=== PATIENT | male | born 1985 | race African-American/Black ===

== ENCOUNTER 2017-10-31 11:37 | Inpatient (IN) | payer SELFPAY ==
[~2017-10-31] VITALS: Ht 170.2 cm; Wt 162.9 kg
[2017-10-31] VITALS (13 sets, daily range): BP systolic 136–226; BP diastolic 65–121; PULSE 91–105; RESP 16–32; TEMP 98.4; O2SAT 96–99
[~2017-10-31 11:37] MED LIST: FURO1TAB93 PO; LISI-363 PO; METO50TA PO; OMEP20CA5 PO; POTA-267 PO; WARF5TAB PO; WARF7.5T4 PO; ZITH250T PO
[2017-10-31] MEDS ORDERED: IOHEXOL 350 MG/ML 10 ML VIAL (for RAD DIAG) IVCONTRAST ONE (11:38)
--- NOTE | 2017-10-31 12:34 | RADRPT ---
EXAM DATE/TIME: 10/31/2017 12:10 [facility] COMPARISON: CT PULMONARY ANGIOGRAM, August 31, 2014, 11:39. CHEST SINGLE AP, May 04, 2016, 20:19. CHEST PA & LAT, October 10, 2014, 4:55. INDICATIONS : Short of breath since last Sunday. MEDICAL HISTORY : Hypertension. A-fib SURGICAL HISTORY : Pacemaker. ENCOUNTER: Initial ACUITY: 4 - 6 days PAIN SCORE: 0/10 LOCATION: Bilateral chest FINDINGS: PA and lateral views of the chest demonstrate the lungs to be symmetrically aerated without evidence of mass, infiltrate or effusion. The heart is enlarged, similar in size and configuration to prior a dmission radiograph in September 2014. Cardiac pacer in place with 3 leads present. No evidence of pne umothorax. No blunting of the costophrenic angles. CONCLUSION: 1. Cardiomegaly, stable. 2. No infiltrates seen. Aditya Conteh MD on October 31, 2017 at 12:29 Board Certified Radiologist. This report was verified electronically.
[2017-10-31] MEDS ORDERED: LISI-515 PO (13:15)
[2017-10-31] MEDS ORDERED: OMEP40CA2 PO (13:15)
[2017-10-31] MEDS ORDERED: METO50TA PO (13:15)
[2017-10-31] MEDS ORDERED: WARF-23 PO (13:15)
[2017-10-31] MEDS ORDERED: KLOR10TA PO (13:15)
[2017-10-31] MEDS ORDERED: FURO40TA PO (13:15)
[2017-10-31] MEDS ORDERED: WARF-21 PO (13:15)
[2017-10-31 13:20] LABS: AUTOMATED NEUTROPHIL # 4.9 TH/MM3 (1.8-7.7); BASOPHIL % 0.3 % (0.0-2.0); EOSINOPHIL # 0.2 TH/MM3 (0-0.4); EOSINOPHIL % 1.9 % (0.0-4.0); HEMATOCRIT 41.4 % (39.0-51.0); HEMOGLOBIN 13.5 GM/DL (13.0-17.0); LYMPH % 33.8 % (9.0-44.0); LYMPHOCYTE # 2.9 TH/MM3 (1.0-4.8); MEAN CELL VOLUME 81.4 FL (80.0-100.0); MEAN CORPUSCULAR HEMOGLOBIN 26.6 PG (27.0-34.0); MEAN CORPUSCULAR HGB CONC 32.7 % (32.0-36.0); MEAN PLATELET VOLUME 10.8 FL (7.0-11.0); MONO % 7.9 % (0.0-8.0); MONOCYTE # 0.7 TH/MM3 (0-0.9); NEUT % 56.1 % (16.0-70.0); PLATELET COUNT 178 TH/MM3 (150-450); RED BLOOD COUNT 5.08 MIL/MM3 (4.50-5.90); RED CELL DISTRIBUTION WIDTH 16.4 % (11.6-17.2); WHITE BLOOD COUNT 8.7 TH/MM3 (4.0-11.0)
[2017-10-31 13:27] LABS: PROTHROMBIN TIME - PATIENT 20.6 SEC (9.8-11.6)
--- NOTE | 2017-10-31 13:30 | PD ---
HPI Chief Complaint: Respiratory Symptoms Time Seen by Provider: 13:16 Travel History International Travel<30 days: No Contact w/Intl Traveler<30days: No Traveled to known affect area: No History of Present Illness HPI PATIENT'S MAIN COMPLAINT IS SOB THAT IS NOT IMPROVING....DESCRIBES DYSPNEA ON EXERTION, NOW UNABLE TO AMBULATE SHORT DISTANCES HE COULD BEFORE... 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 PMHX:AFIB, CHF, DEFIBRILLATOR, PACEMAKER, PFSH Past Medical History Hx Anticoagulant Therapy: Yes (Coumadin) Arthritis: Yes (rheumatoid) Asthma: Yes (CHILDHOOD) Autoimmune Disease: Yes (LUPUS) Blood Disorders: No Heart Rhythm Problems: No Cancer: No Cardiovascular Problems: Yes (CHF, a-fib, debrillatior) High Cholesterol: No Chest Pain: Yes Congestive Heart Failure: No COPD: No Diminished Hearing: No Endocrine: No GERD: Yes Genitourinary: No Hypertension: Yes Immune Disorder: No Neurologic: Yes (Numbness & tingling in hands and feet) Psychiatric: No Reproductive: No Respiratory: Yes (ASTHMA) Sleep Apnea: No Influenza Vaccination: No Past Surgical History Cardiac Surgery: Yes (PACEMAKER INSERTION x2) Other Surgery: No Family History Family Myocardial Infarction: Yes Social History Alcohol Use: Yes (OCC) Tobacco Use: No Substance Use: No Allergies-Medications (Allergen,Severity, Reaction): Coded Allergies: No Known Allergies (Verified , 05/04/16) Reported Meds & Prescriptions Reported Meds & Active Scripts Active Reported Warfarin 7.5 Mg Tab 7.5 Mg PO [facility] Warfarin 5 Mg Tab 5 Mg PO MOTUTHFRSA Klor-Con 10 (Potassium Chloride) 10 Meq Tab 10 Meq PO BID Omeprazole 40 Mg Cap 40 Mg PO DAILY Metoprolol Tartrate 50 Mg Tab 50 Mg PO DAILY Lisinopril 20 Mg Tab 20 Mg PO DAILY Furosemide 40 Mg Tab 40 Mg PO DAILY Review of Systems Except as stated in HPI: all other systems reviewed are Neg General / Constitutional: No: Fever Eyes: No: Visual changes HENT: No: Headaches Cardiovascular: No: Chest Pain or Discomfort Respiratory: Positive: Shortness of Breath Gastrointestinal: No: Abdominal Pain Genitourinary: No: Dysuria Musculoskeletal: No: Pain Skin: No Rash Neurologic: No: Weakness Psychiatric: No: Depression Endocrine: No: Polydipsia Hematologic/Lymphatic: No: Easy Bruising Physical Exam Narrative GENERAL: SKIN: Warm and dry. HEAD: Atraumatic. Normocephalic. EYES: Pupils equal and round. No scleral icterus. No injection or drainage. ENT: No nasal bleeding or discharge. Mucous membranes pink and moist. NECK: Trachea midline. No JVD. CARDIOVASCULAR: Regular rate and rhythm. RESPIRATORY: No accessory muscle use. BIBASILAR CRACKLES, GASTROINTESTINAL: Abdomen soft, non-tender, nondistended. Hepatic and splenic margins not palpable. MUSCULOSKELETAL: Extremities without clubbing, cyanosis, or edema. No obvious deformities. NEUROLOGICAL: Awake and alert. No obvious cranial nerve deficits. Motor grossly within normal limits. Five out of 5 muscle strength in the arms and legs. Normal speech. PSYCHIATRIC: Appropriate mood and affect; insight and judgment normal. Data Data Last Documented VS Vital Signs Date Time Temp Pulse Resp B/P (MAP) Pulse Ox O2 Delivery O2 Flow Rate FiO2 10/31/17 15:09 94 20 226/121 (156) 98 Room Air 10/31/17 11:39 98.4 Orders Orders Complete Blood Count With Diff (10/31/17 11:57) Basic Metabolic Panel (Bmp) (10/31/17 11:57) B-Type Natriuretic Peptide (10/31/17 11:57) Act Partial Throm Time (Ptt) (10/31/17 11:57) Prothrombin Time / Inr (Pt) (10/31/17 11:57) Magnesium (Mg) (10/31/17 11:57) Ckmb (Isoenzyme) Profile (10/31/17 11:57) Troponin I (10/31/17 11:57) Electrocardiogram (10/31/17 11:57) Chest, Pa & Lat (10/31/17 11:57) Furosemide Inj (Lasix Inj) (10/31/17 13:45) CKMB (10/31/17 12:45) CKMB% (10/31/17 12:45) Aspirin Chew (Aspirin Chew) (10/31/17 14:45) Nitroglycerin 2% Oint (Nitroglycerin 2% (10/31/17 14:45) Furosemide Inj (Lasix Inj) (10/31/17 14:45) Hydralazine Inj (Apresoline Inj) (10/31/17 15:15) Ct Pulmonary Angiogram (10/31/17 15:31) Ckmb (Isoenzyme) Profile (10/31/17 15:32) Troponin I (10/31/17 15:32) Iohexol 350 Inj (Omnipaque 350 Inj) (10/31/17 11:38) CKMB (10/31/17 16:10) CKMB% (10/31/17 16:10) Labs Laboratory Tests Test 10/31/17 12:45 10/31/17 16:10 White Blood Count 8.7 TH/MM3 Red Blood Count 5.08 MIL/MM3 Hemoglobin 13.5 GM/DL Hematocrit 41.4 % Mean Corpuscular Volume 81.4 FL Mean Corpuscular Hemoglobin 26.6 PG Mean Corpuscular Hemoglobin Concent 32.7 % Red Cell Distribution Width 16.4 % Platelet Count 178 TH/MM3 Mean Platelet Volume 10.8 FL Neutrophils (%) (Auto) 56.1 % Lymphocytes (%) (Auto) 33.8 % Monocytes (%) (Auto) 7.9 % Eosinophils (%) (Auto) 1.9 % Basophils (%) (Auto) 0.3 % Neutrophils # (Auto) 4.9 TH/MM3 Lymphocytes # (Auto) 2.9 TH/MM3 Monocytes # (Auto) 0.7 TH/MM3 Eosinophils # (Auto) 0.2 TH/MM3 Basophils # (Auto) 0.0 TH/MM3 CBC Comment DIFF FINAL Differential Comment Prothrombin Time 20.6 SEC Prothromb Time International Ratio 2.0 RATIO Activated Partial Thromboplast Time 42.9 SEC Blood Urea Nitrogen 17 MG/DL Creatinine 0.90 MG/DL Random Glucose 128 MG/DL Calcium Level 9.0 MG/DL Magnesium Level 2.0 MG/DL Sodium Level 138 MEQ/L Potassium Level 3.8 MEQ/L Chloride Level 104 MEQ/L Carbon Dioxide Level 25.6 MEQ/L Anion Gap 8 MEQ/L Estimat Glomerular Filtration Rate 117 ML/MIN Total Creatine Kinase 276 U/L 243 U/L Creatine Kinase MB 2.0 NG/ML 1.4 NG/ML Troponin I 0.06 NG/ML 0.06 NG/ML B-Type Natriuretic Peptide 45 PG/ML MDM Medical Decision Making Medical Screen Exam Complete: Yes Emergency Medical Condition: Yes Medical Record Reviewed: Yes Interpretation(s) PACED RHYTHM, BBB PATTERN C/W PACEMAKER PATTERN Differential Diagnosis CHF EXAC V PNA V PTX V NONSTEMI Narrative Course PATIENT IS CP FREE, HOWEVER AFTER NTG PASTE AND HYDRALAZINE IV, PATIENT CONTINUES TO BE HYPERTENSIVE WITH SBP 202/92...CALLED [facility] FOR ADMISSION Diagnosis Primary Impression: HYPERTENSIVE URGENCY Additional Impression: ELEVATED TROPONIN Patient Instructions: General Instructions, Heart Failure (ED) Fede Smith MD Oct 31, 2017 13:30
[2017-10-31 13:40] LABS: BICARBONATE 25.6 MEQ/L (21.0-32.0); BLOOD UREA NITROGEN 17 MG/DL (7-18); CHLORIDE 104 MEQ/L (98-107); GLOMERULAR FILTRATION RATE 117 ML/MIN (>89); GLUCOSE,RANDOM 128 MG/DL (74-106); SODIUM (NA) 138 MEQ/L (136-145)
[2017-10-31] MEDS ORDERED: FUROSEMIDE 100 MG/10 ML VIAL IVP ONE (13:45)
[2017-10-31 13:47] LABS: TROPONIN I 0.06 NG/ML (0.02-0.05)
[2017-10-31] MEDS ORDERED: ASPIRIN 81 MG CHEW TAB PO ONE (14:45)
[2017-10-31] MEDS ORDERED: NITROGLYCERIN 2% OINT 1 GM PACKET TOP ONE (14:45)
[2017-10-31] MEDS ORDERED: FUROSEMIDE 20 MG/2 ML VIAL IVP ONE (14:45)
[2017-10-31] MEDS ORDERED: hydrALAZINE HCL 20 MG/ML VIAL IV PUSH ONE (15:15)
--- NOTE | 2017-10-31 16:31 | RADRPT ---
EXAM DATE/TIME: 10/31/2017 15:56 [facility] COMPARISON: CT PULMONARY ANGIOGRAM, August 31, 2014, 11:39. INDICATIONS : Increasing shortness of breath. IV CONTRAST: 60 cc Omnipaque 350 (iohexol) IV RADIATION DOSE: 23.01 CTDIvol (mGy) MEDICAL HISTORY : Cardiovascular disease. Hypertension. Lupus. SURGICAL HISTORY : Pacemaker. ENCOUNTER: Initial ACUITY: 1 day PAIN SCALE: 0/10 LOCATION: chest TECHNIQUE: Volumetric scanning of the chest was performed using a pulmonary embolism protocol MIP images were re constructed. Using automated exposure control and adjustment of the mA and/or kV according to patien t size, radiation dose was kept as low as reasonably achievable to obtain optimal diagnostic quality images. DICOM format image data is available electronically for review and comparison. Follow-up recommendations for detected pulmonary nodules are based at a minimum on nodule size and pa tient risk factors according to Fleischner Society Guidelines. FINDINGS: There is mild respiratory motion artifact. PULMONARY ARTERIES: No filling defects are seen in the pulmonary arteries through the segmental level. LUNGS: There is groundglass opacity and patchy consolidation within both lower lobes. PLEURAE: There is no pleural thickening or pleural effusion. MEDIASTINUM: The heart is enlarged. Left chest wall cardiac pacing device is present with biventricular leads. No lymphadenopathy is visualized. MUSCULOSKELETAL: No acute abnormality is identified. MISCELLANEOUS: Liver density suggests steatosis. Remaining upper abdominal organs demonstrate no acute finding. CONCLUSION: 1. No PE is identified. 2. Abnormal groundglass opacity in both lower lobes and patchy consolidation. Imaging features are no nspecific. Pulmonary edema could potentially have this appearance as could other nonspecific infectio us or inflammatory processes. 3. Cardiomegaly. Osei Herndon MD on October 31, 2017 at 16:24 Board Certified Radiologist. This report was verified electronically.
[2017-10-31 16:44] LABS: TROPONIN I 0.06 NG/ML (0.02-0.05)
[2017-10-31] MEDS ORDERED: niCARdipine INJ 25 MG in SODIUM CHLOR 0.9% 250 ML INJ 240 ML IV ONE (18:15)
--- NOTE | 2017-10-31 18:19 | HHI.HP ---
HPI Service [facility] Hospitalists Primary Care Physician No Primary Care Physician Admission Diagnosis HYPERTENSIVE URGENCY, ELEVATED TROPONIN Diagnoses: Chief Complaint: Shortness of breath Travel History International Travel<30 Days: No Contact w/Intl Traveler <30 Da: No Traveled to Known Affected Are: No History of Present Illness Written by Laureen Cesar, acting as scribe for Dr. Flowers on 10/31/17 at 18: 19. This is 32yo male patient with a PMHX of atrial fibrillation on Coumadin, CHF, s/p pacemaker, s/p defibrillator, GERD, RA, lupus and asthma who presents to [facility] ED with complaints of dyspnea. Patient was out of his Lasix for about a week but resumed it on Sunday. Patient reports progressive dyspnea with minimal exertion for the past 2-3 days. He admits to not eating as healthy as he should be. He endorses chronic dull chest pain with deep inspiration. He endorses swelling in his legs. He denies any chest pain or shortness of breath. He denies any nausea, vomiting or abdominal pain. In the ED, patient was found to have uncontrolled hypertension with BP . His troponin was found to be elevated. BNP was 45. CTA negative for PE. Review of Systems Except as stated in HPI: all other systems reviewed are Neg Past Family Social History Past Medical History Nonischemic cardiomyopathy CHF Atrial fibrillation on Coumadin Lupus rheumatoid arthritis Past Surgical History Pacemaker Defibrillator Reported Medications Warfarin 7.5 Mg Tab 7.5 Mg PO [facility]U Warfarin 5 Mg Tab 5 Mg PO MOTUTHFRSA Klor-Con 10 (Potassium Chloride) 10 Meq Tab 10 Meq PO BID Omeprazole 40 Mg Cap 40 Mg PO DAILY Metoprolol Tartrate 50 Mg Tab 50 Mg PO DAILY Lisinopril 20 Mg Tab 20 Mg PO DAILY Furosemide 40 Mg Tab 40 Mg PO DAILY Allergies: Coded Allergies: No Known Allergies (Verified , 05/04/16) Family History CAD on both sides of his family Social History Patient denies any tobacco use. He reports occasional EtOH use but has not had any alcohol recently. He denies any illicit drug use. Physical Exam Vital Signs Vital Signs Date Time Temp Pulse Resp B/P (MAP) Pulse Ox O2 Delivery O2 Flow Rate FiO2 10/31/17 17:27 99 17 202/92 (128) 99 Room Air 10/31/17 15:09 94 20 226/121 (156) 98 Room Air 10/31/17 11:39 98.4 105 16 192/117 (142) 96 Physical Exam GENERAL: This is a well-nourished, well-developed obese male patient, in no apparent distress. Awake and alert. Sitting up out of bed. Family at the bedside. SKIN: No rashes, ecchymoses or lesions. Cool and dry. HEAD: Atraumatic. Normocephalic. No temporal or scalp tenderness. EYES: Pupils equal round and reactive. Extraocular motions intact. No scleral icterus. No injection or drainage. ENT: Nose without bleeding or purulent drainage. Throat without erythema, tonsillar hypertrophy or exudate. Uvula midline. Airway patent. NECK: Trachea midline. No lymphadenopathy. Supple, nontender, no meningeal signs. CARDIOVASCULAR: Regular rate and rhythm without murmurs, gallops, or rubs. RESPIRATORY: Clear to auscultation. Breath sounds equal bilaterally. No wheezes , rales, or rhonchi. GASTROINTESTINAL: Abdomen soft, non-tender, nondistended. No hepato-splenomegaly , or palpable masses. No guarding. MUSCULOSKELETAL: Extremities without clubbing, cyanosis, or edema. No joint tenderness, effusion, or edema noted. No calf tenderness. NEUROLOGICAL: Awake and alert. Motor and sensory grossly within normal limits. Five out of 5 muscle strength in all muscle groups. No focal neurologic findings appreciated. Normal speech. Laboratory Laboratory Tests Test 10/31/17 12:45 10/31/17 16:10 White Blood Count 8.7 Red Blood Count 5.08 Hemoglobin 13.5 Hematocrit 41.4 Mean Corpuscular Volume 81.4 Mean Corpuscular Hemoglobin 26.6 Mean Corpuscular Hemoglobin Concent 32.7 Red Cell Distribution Width 16.4 Platelet Count 178 Mean Platelet Volume 10.8 Neutrophils (%) (Auto) 56.1 Lymphocytes (%) (Auto) 33.8 Monocytes (%) (Auto) 7.9 Eosinophils (%) (Auto) 1.9 Basophils (%) (Auto) 0.3 Neutrophils # (Auto) 4.9 Lymphocytes # (Auto) 2.9 Monocytes # (Auto) 0.7 Eosinophils # (Auto) 0.2 Basophils # (Auto) 0.0 CBC Comment DIFF FINAL Differential Comment Prothrombin Time 20.6 Prothromb Time International Ratio 2.0 Activated Partial Thromboplast Time 42.9 Blood Urea Nitrogen 17 Creatinine 0.90 Random Glucose 128 Calcium Level 9.0 Magnesium Level 2.0 Sodium Level 138 Potassium Level 3.8 Chloride Level 104 Carbon Dioxide Level 25.6 Anion Gap 8 Estimat Glomerular Filtration Rate 117 Total Creatine Kinase 276 243 Creatine Kinase MB 2.0 1.4 Troponin I 0.06 0.06 B-Type Natriuretic Peptide 45 Result Diagram: 10/31/17 1245 10/31/[address] Angiography 10/31/17 1531 Signed Impressions: Service Date/Time: Tuesday, October 31, 2017 15:56 - CONCLUSION: 1. No PE is identified. 2. Abnormal groundglass opacity in both lower lobes and patchy consolidation. Imaging features are nonspecific. Pulmonary edema could potentially have this appearance as could other nonspecific infectious or inflammatory processes. 3. Cardiomegaly. Osei Herndon MD Chest X-Ray 10/31/17 1157 Signed Impressions: Service Date/Time: Tuesday, October 31, 2017 12:10 - CONCLUSION: 1. Cardiomegaly, stable. 2. No infiltrates seen. MD Wendy Garcia VTE Risk Assessment Capheidyi VTE Risk Assessment: No/Low Risk (score <= 1) Caprini Risk Assessment Model Point Value = 1 Point Value = 2 Point Value = 3 Point Value = 5 Age 41-60 Minor surgery BMI > 25 kg/m2 Swollen legs Varicose veins or History of unexplained or recurrent spontaneous Oral contraceptives or hormone replacement Sepsis (< 1 month) Serious lung disease, including pneumonia (< 1 month) Abnormal pulmonary function Acute myocardial infarction Congestive heart failure (< 1 month) History of inflammatory bowel disease Medical patient at bed rest Age 61-74 Arthroscopic surgery Major open surgery (> 45 min) Laparoscopic surgery (> 45 min) Malignancy Confined to bed (> 72 hours) Immobilizing plaster cast Central venous access Age >= 75 History of VTE Family history of VTE Factor V Leiden Prothrombin [id number] Lupus anticoagulant Anticardiolipin antibodies Elevated serum homocysteine Heparin-induced thrombocytopenia Other congenital or acquired thrombophilia Stroke (< 1 month) Elective arthroplasty Hip, pelvis, or leg fracture Acute spinal cord injury (< 1 month) Prophylaxis Regimen Total Risk Factor Score Risk Level Prophylaxis Regimen 0-1 Low Early ambulation 2 Moderate Order ONE of the following: *Sequential Compression Device (SCD) *Heparin 5000 units SQ BID 3-4 Higher Order ONE of the following medications: *Heparin 5000 units SQ TID *Enoxaparin/Lovenox 40 mg SQ daily (WT < 150 kg, CrCl > 30 mL/min) *Enoxaparin/Lovenox 30 mg SQ daily (WT < 150 kg, CrCl > 10-29 mL/min) *Enoxaparin/Lovenox 30 mg SQ BID (WT < 150 kg, CrCl > 30 mL/min) AND/OR *Sequential Compression Device (SCD) 5 or more Highest Order ONE of the following medications: *Heparin 5000 units SQ TID (Preferred with Epidurals) *Enoxaparin/Lovenox 40 mg SQ daily (WT < 150 kg, CrCl > 30 mL/min) *Enoxaparin/Lovenox 30 mg SQ daily (WT < 150 kg, CrCl > 10-29 mL/min) *Enoxaparin/Lovenox 30 mg SQ BID (WT < 150 kg, CrCl > 30 mL/min) AND *Sequential Compression Device (SCD) Assessment and Plan Problem List: (1) Hypertensive urgency, malignant ICD Code: I16.0 - Hypertensive urgency Assessment and Plan 32yo male patient with a PMHX of atrial fibrillation on Coumadin, CHF, s/p pacemaker, s/p defibrillator, GERD, RA, lupus and asthma who presents to [facility] ED with complaints of dyspnea. Hypertensive urgency - IV Cardene drip - monitor BP - resume home medication of Lisinopril and Metoprolol Elevated troponin - initial troponin 0.06 x 2 - suspect due to uncontrolled hypertension - Consult cardiology, appreciate recommendations - cycle Griffin - continuous cardiac monitoring Nonischemic cardiomyopathy s/p defibrillator/pacemaker CHF, no evidence of fluid overload on exam, BNP 45 - obtain 2D echo - Continue patient on home dose of furosemide 40 mg daily and potassium 10 mg twice a day - monitor for signs of fluid overload Atrial fibrillation on Coumadin - rate controlled - INR therapeutic at 2.0 - Continue patient on home Coumadin dose. Continue to monitor INR. Pharmacy to dose. - Continue patient on metoprolol 50 mg daily Hyperglycemia - No reported history of diabetes - Obtain hemoglobin A1c GERD - Resume home dose of PPI RA Lupus - Chronic, stable DVT prophylaxis - Patient is on Coumadin This note was transcribed by silvia Cesar. I, Dr. Catrachito Flowers personally performed the history, physical exam, and medical decision making; and confirmed the accuracy of the information in the transcribed note. Authenticated by Dr. Catrachito Flowers on 10/31/17 at 18:19. Code Status Full code Discussed Condition With ED physician, patient, and family Physician Certification 2 Midnight Certification Type: Admission for Inpatient Services Order for Inpatient Services The services are ordered in accordance with Medicare regulations or non- Medicare payer requirements, as applicable. In the case of services not specified as inpatient-only, they are appropriately provided as inpatient services in accordance with the 2-midnight benchmark. Estimated LOS (days): 3 3 days is the estimated time the patient will need to remain in the hospital, assuming treatment plan goals are met and no additional complications. Post-Hospital Plan: Not yet determined Laureen Cesar Oct 31, 2017 18:19 Catrachito Flowers MD Oct 31, 2017 18:20
[2017-10-31] MEDS ORDERED: ONDANSETRON HCL 4 MG/2 ML VIAL IVP PRN (19:15)
[2017-10-31] MEDS ORDERED: SODIUM CHLORIDE 0.9% FLUSH 10 ML FLUSH IV FLUSH PRN (19:15)
[2017-10-31] MEDS ORDERED: ACETAMINOPHEN 325 MG TAB PO PRN (19:15)
[2017-10-31] MEDS ORDERED: NALOXONE HCL 0.4 MG/ML AMP IV PUSH PRN (19:15)
[2017-10-31] MEDS ORDERED: MAGNESIUM HYDROXIDE SUSP 30 ML CUP PO PRN (19:15)
[2017-10-31] MEDS: ACETAMINOPHEN 325 MG TAB PO PRN (19:57)
[2017-10-31] MEDS: SODIUM CHLORIDE 0.9% FLUSH 10 ML FLUSH IV FLUSH SCH (21:21)
[2017-11-01] VITALS (13 sets, daily range): BP systolic 144–184; BP diastolic 67–103; PULSE 85–98; RESP 7–30; TEMP 97.7–98.6; O2SAT 96–99
[2017-11-01 06:04] LABS: BASOPHIL % 0.6 % (0.0-2.0); EOSINOPHIL # 0.2 TH/MM3 (0-0.4); EOSINOPHIL % 2.5 % (0.0-4.0); HEMATOCRIT 40.1 % (39.0-51.0); HEMOGLOBIN 13.3 GM/DL (13.0-17.0); LYMPH % 34.9 % (9.0-44.0); LYMPHOCYTE # 2.6 TH/MM3 (1.0-4.8); MEAN CELL VOLUME 80.9 FL (80.0-100.0); MEAN CORPUSCULAR HEMOGLOBIN 26.8 PG (27.0-34.0); MEAN CORPUSCULAR HGB CONC 33.1 % (32.0-36.0); MEAN PLATELET VOLUME 9.8 FL (7.0-11.0); MONO % 8.4 % (0.0-8.0); MONOCYTE # 0.6 TH/MM3 (0-0.9); NEUT % 53.6 % (16.0-70.0); PLATELET COUNT 150 TH/MM3 (150-450); RED BLOOD COUNT 4.95 MIL/MM3 (4.50-5.90); RED CELL DISTRIBUTION WIDTH 16.6 % (11.6-17.2); WHITE BLOOD COUNT 7.4 TH/MM3 (4.0-11.0)
[2017-11-01 06:16] LABS: PROTHROMBIN TIME - PATIENT 19.9 SEC (9.8-11.6)
[2017-11-01 06:31] LABS: AST (GOT) 20 U/L (15-37); BLOOD UREA NITROGEN 20 MG/DL (7-18); CALCIUM 8.8 MG/DL (8.5-10.1); CHLORIDE 103 MEQ/L (98-107); CREATININE 0.82 MG/DL (0.60-1.30); GLOMERULAR FILTRATION RATE 130 ML/MIN (>89); GLUCOSE,RANDOM 155 MG/DL (74-106); SODIUM (NA) 137 MEQ/L (136-145)
[2017-11-01 06:32] LABS: ALT (GPT) 48 U/L (12-78)
[2017-11-01 06:34] LABS: ALKALINE PHOSPHATASE 49 U/L (45-117); TOTAL BILIRUBIN ADULT 0.4 MG/DL (0.2-1.0); TOTAL PROTEIN 7.6 GM/DL (6.4-8.2)
[2017-11-01] MEDS: POTASSIUM CHLORIDE 10 MEQ CONTROLLED RELEASE TAB PO SCH ×2 (08:15→20:13)
[2017-11-01] MEDS: LISINOPRIL 20 MG TAB PO SCH (08:15)
[2017-11-01] MEDS: FUROSEMIDE 40 MG TAB PO SCH (08:15)
[2017-11-01] MEDS: PANTOPRAZOLE SOD 40 MG DELAYED RELEASE TAB PO SCH (08:15)
[2017-11-01] MEDS: SODIUM CHLORIDE 0.9% FLUSH 10 ML FLUSH IV FLUSH SCH ×2 (08:16→20:13)
[2017-11-01] MEDS ORDERED: METOPROLOL TARTRATE 50 MG TAB PO SCH (09:00)
--- NOTE | 2017-11-01 11:47 | HHI.PR ---
Subjective Remarks Follow-up hypertensive urgency 11/01/17-patient seen and examined, BP better control now and patient denies any chest pain or shortness of breath. No acute event overnight. Currently off Cardene drip Objective Vitals Vital Signs Date Time Temp Pulse Resp B/P (MAP) Pulse Ox O2 Delivery O2 Flow Rate FiO2 11/01/17 06:00 91 11/01/17 04:00 87 11/01/17 04:00 98.5 87 28 157/86 (109) 98 11/01/17 02:00 87 11/01/17 00:15 98.6 93 23 163/89 (113) 96 11/01/17 00:00 98.6 88 30 144/67 (92) 98 11/01/17 00:00 88 10/31/17 23:30 91 30 147/69 (95) 98 10/31/17 23:15 94 27 136/66 (89) 99 10/31/17 23:15 94 136/66 10/31/17 23:00 97 23 143/72 (95) 99 10/31/17 22:45 93 28 140/67 (91) 99 10/31/17 22:30 100 30 139/65 (89) 99 10/31/17 22:15 98.4 97 32 142/65 (90) 96 10/31/17 22:00 97 10/31/17 22:00 98.4 96 19 148/85 (106) 99 10/31/17 21:45 98.4 102 19 172/95 (120) 96 10/31/17 21:38 10/31/17 21:20 102 145/100 10/31/17 20:46 99 184/88 10/31/17 20:31 102 174/89 10/31/17 20:17 104 172/102 10/31/17 19:45 102 184/92 10/31/17 19:30 102 174/74 10/31/17 19:21 98 Room Air 10/31/17 19:20 99 20 179/84 (115) 98 Room Air 10/31/17 19:19 100 179/84 10/31/17 18:50 104 20 178/84 (115) 96 Room Air 10/31/17 18:50 104 178/84 10/31/17 17:27 99 17 202/92 (128) 99 Room Air 10/31/17 15:09 94 20 226/121 (156) 98 Room Air I/O 10/31/17 10/31/17 10/31/17 11/01/17 11/01/17 11/01/17 07:00 15:00 23:00 07:00 15:00 23:00 Intake Total 730 ml Output Total 600 ml Balance 130 ml Intake Oral 480 ml IV Total 250 ml Output Urine Total 600 ml # Bowel Movements 0 Result Diagram: 11/01/17 0535 11/01/17 [address] Angiography 10/31/17 1531 Signed Impressions: Service Date/Time: Tuesday, October 31, 2017 15:56 - CONCLUSION: 1. No PE is identified. 2. Abnormal groundglass opacity in both lower lobes and patchy consolidation. Imaging features are nonspecific. Pulmonary edema could potentially have this appearance as could other nonspecific infectious or inflammatory processes. 3. Cardiomegaly. Osei Herndon MD Chest X-Ray 10/31/17 1157 Signed Impressions: Service Date/Time: Tuesday, October 31, 2017 12:10 - CONCLUSION: 1. Cardiomegaly, stable. 2. No infiltrates seen. Aditya Conteh MD Objective Remarks GENERAL: NAD SKIN: Warm and dry. HEAD: Normocephalic. EYES: No scleral icterus. No injection or drainage. NECK: Supple, trachea midline. No JVD or lymphadenopathy. CARDIOVASCULAR: Irregular Regular rate and rhythm without murmurs, gallops, or rubs. RESPIRATORY: Breath sounds equal bilaterally. No accessory muscle use. GASTROINTESTINAL: Abdomen soft, non-tender, nondistended. MUSCULOSKELETAL: No cyanosis, or edema. BACK: Nontender without obvious deformity. No CVA tenderness. A/P Problem List: (1) Hypertensive urgency, malignant ICD Code: I16.0 - Hypertensive urgency Assessment and Plan 32-year-old man with Hypertensive urgency-resolved - s/p Cardene drip - monitor BP - Continue home medication of Lisinopril and Metoprolol Elevated troponin - initial troponin 0.06 x 2 - suspect due to uncontrolled hypertension - Awaiting fall cardiology consultation - cycle Griffin - continuous cardiac monitoring Nonischemic cardiomyopathy s/p defibrillator/pacemaker CHF, no evidence of fluid overload on exam, BNP 45 - 2D echo pending - Continue patient on home dose of furosemide 40 mg daily and potassium 10 mg twice a day Atrial fibrillation on Coumadin - rate controlled - INR therapeutic at 2.0 - Continue patient on home Coumadin dose. Continue to monitor INR. Pharmacy to dose. - Continue patient on metoprolol 50 mg daily Hyperglycemia - No reported history of diabetes - Obtain hemoglobin A1c GERD - Continue home dose of PPI RA Lupus - Chronic, stable DVT prophylaxis - Patient is on Coumadin Catrachito Flowers MD Nov 01, 2017 11:47
[2017-11-01] MEDS: LABETALOL HCL 100 MG/20 ML VIAL IV PUSH PRN ×3 (12:48→19:16)
[2017-11-01] MEDS: WARFARIN SOD 5 MG TAB PO SCH (15:18)
[2017-11-01] MEDS ORDERED: amLODIPine BESYLATE 5 MG TAB PO ONE (16:45)
--- NOTE | 2017-11-01 19:51 | MB ---
cc: GAIL PANIAGUA MD DATE OF CONSULTATION 11/01/17 Julius is a very pleasant 32 year old gentleman with history of hypertension. He says he takes up to 1000 mg a day of ibuprofen. He says he is compliant with his blood pressure medications. He also states he has an EF of 30% in the past. He presented to the ER yesterday with chief complaint of shortness of breath. He was found to have an initial blood pressure of 226/121. Today, his blood pressure is much better controlled, however, it is still quite elevated, ranging from 149 to 184, but his shortness of breath is improved. He denies chest pain. Denies fevers, chills, cough, or GI bleeding, paroxysmal nocturnal dyspnea, orthopnea, syncope or dizziness. PAST MEDICAL HISTORY As per History of Present Illness. 1. History of lupus, 2. Rheumatoid arthritis 3. A. Fib status post defibrillator 4. Asthma. 5. Pacemaker inserted x2. SOCIAL HISTORY Drinks alcohol occasionally. Denies tobacco use. ALLERGIES None. MEDICATIONS Prior to admission 1. Warfarin. 2. Klor-Con 3. Omeprazole 4. Metoprolol 50 daily. 5. Lisinopril 20 daily 6. Furosemide 40 daily. In the hospital 1. Warfarin 7.5 Sunday and Sunday 5 mg all other days. 2. Pantoprazole 40 daily. 3. Lisinopril 20 mg daily. 4. Metoprolol tartrate 50 mg daily. 5. Lasix 49 mg p.o. daily. 6. Potassium 10 mEq b.i.d. PHYSICAL EXAMINATION VITAL SIGNS: Blood pressure today ranging between 149 and 184 systolic, last blood pressure 184/97, pulse 89, temperature 98.3, respiratory rate 17. GENERAL: He is alert and oriented times three in no distress NECK: Supple. No JVD, no bruit CARDIOVASCULAR: S1-S2. No murmurs, rubs or gallops. LUNGS: Clear to auscultation bilaterally ABDOMEN: Soft, nontender, nondistended with positive bowel sounds. EXTREMITIES: No lower extremity edema. IMAGING STUDIES Chest x-ray - Cardiomegaly, stable no infiltrates seen. CT angiography - No PE identified, abnormal ground-glass opacity in both lower lobes and patchy consolidation. Imaging features are nonspecific. Pulmonary edema could potentially have this appearance "nonspecific infectious or inflammatory processes" cardiomegaly. CARDIOLOGY STUDIES EKG - The patient has V paced rhythm at 90 beats per minute. LABORATORY DATA White count 7.4, hemoglobin 13.3, hematocrit 40.1, platelet count 150. Sodium 137, potassium 3.5, chloride 103, bicarb 24.0, BUN 20, creatinine 0.82. Blood sugar is 155, AST 20, ALT 48, troponin 0.06 followed by 0.06. BNP is 45, INR is 2.0 yesterday and today. DIAGNOSES 1. Severe hypertension. 2. 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 3. Status post ICD 4. Status post pacemaker. 5. History of A. fib 6. Hyperglycemia. 7. Non STEMI 8. Status post permanent pacemaker. 9. Lupus. 10. Rheumatoid arthritis DISCUSSION The patient's blood pressure is improved. He is euvolemic on exam even though I suspect his clinical decompensated heart failure was due to severe hypertension. I do think it is reasonable to add Norvasc to further improve his blood pressure. We will start 5 mg daily. Continue Coumadin. Follow up 2-D echo. I have strongly advised him to avoid NSAIDs as this may exacerbate his fluid retention and decompensated congestive heart failure. Recommend continue lisinopril and metoprolol. Further recommendations based on his trend in blood pressure and symptoms. MD EDWARD Garcia/ /4:26 PM /7:17 PM
[2017-11-01] MEDS ORDERED: PANTOPRAZOLE SOD 40 MG DELAYED RELEASE TAB PO ONE (21:00)
[2017-11-01] MEDS: METOPROLOL TARTRATE 50 MG TAB PO SCH (21:23)
--- NOTE | 2017-11-01 23:01 | EKG ---
Date Performed: 10/31/2017 Time Performed: 12:32:23 PTAGE: 32 years EKG: ELECTRONIC VENTRICULAR PACEMAKER ABNORMAL RHYTHM ECG PREVIOUS TRACING : 05/05/2016 06.28 Since previous tracing, no significant change noted DOCTOR: Maclolm Smith Interpretating Date/Time 11/01/2017 23:00:35
[2017-11-02] VITALS (10 sets, daily range): BP systolic 148–172; BP diastolic 75–101; PULSE 81–102; RESP 18–30; TEMP 97.5–98.2; O2SAT 96–99
[2017-11-02] MEDS: hydrALAZINE HCL 20 MG/ML VIAL IV PUSH PRN ×2 (06:57→12:57)
[2017-11-02] MEDS: SODIUM CHLORIDE 0.9% FLUSH 10 ML FLUSH IV FLUSH SCH ×2 (07:27→20:24)
[2017-11-02] MEDS: METOPROLOL TARTRATE 50 MG TAB PO SCH ×2 (08:19→20:23)
[2017-11-02] MEDS: FUROSEMIDE 40 MG TAB PO SCH (08:19)
[2017-11-02] MEDS: LISINOPRIL 20 MG TAB PO SCH (08:19)
[2017-11-02] MEDS: POTASSIUM CHLORIDE 10 MEQ CONTROLLED RELEASE TAB PO SCH ×2 (08:19→20:23)
[2017-11-02] MEDS: PANTOPRAZOLE SOD 40 MG DELAYED RELEASE TAB PO SCH (08:20)
[2017-11-02] MEDS: amLODIPine BESYLATE 5 MG TAB PO SCH (08:20)
--- NOTE | 2017-11-02 11:08 | PD.CARD.PN ---
Subjective Subjective Remarks alert in nad, denies dyspnea Objective Medications Current Medications Medications (Trade) Dose Ordered Sig/Ryan Route Start Time Stop Time Status Last Admin (Coumadin) 5 mg MoTuThFrSa@1600 PO 11/01/17 16:00 11/01/17 15:18 (Coumadin) 7.5 mg SuWe@1600 PO 11/04/17 16:00 (Protonix) 40 mg DAILY PO 11/01/17 09:00 11/02/17 08:20 Pharmacy Profile Note 0 ml @ 0 mls/hr UNSCH OTHER 10/31/17 19:15 (NS Flush) 2 ml UNSCH PRN IV FLUSH 10/31/17 19:15 (NS Flush) 2 ml BID IV FLUSH 10/31/17 21:00 11/02/17 07:27 (Tylenol) 650 mg Q4H PRN PO 10/31/17 19:15 (Zofran Inj) 4 mg Q6H PRN IVP 10/31/17 19:15 (Tylenol) 650 mg Q6H PRN PO 10/31/17 19:15 10/31/17 19:57 (Narcan Inj) 0.4 mg UNSCH PRN IV PUSH 10/31/17 19:15 (Milk Of Magnesia Liq) 30 ml Q12H PRN PO 10/31/17 19:15 (Prinivil) 20 mg DAILY PO 11/01/17 09:00 11/02/17 08:19 (Lasix) 40 mg DAILY PO 11/01/17 09:00 11/02/17 08:19 (KCl) 10 meq BID PO 11/01/17 09:00 11/02/17 08:19 (Norvasc) 5 mg DAILY PO 11/02/17 09:00 11/02/17 08:20 (Lopressor) 50 mg BID PO 11/01/17 21:00 11/02/17 08:19 (Apresoline Inj) 10 mg Q30M PRN IV PUSH 11/02/17 00:45 11/02/17 06:57 Vital Signs / I&O Vital Signs Date Time Temp Pulse Resp B/P (MAP) Pulse Ox O2 Delivery O2 Flow Rate FiO2 11/02/17 08:00 97.8 97 20 167/96 (119) 97 11/02/17 04:30 97.5 81 18 166/93 (117) 99 11/02/17 01:30 97.6 83 18 154/92 (112) 97 11/02/17 00:00 98.2 90 30 158/86 (110) 99 11/02/17 00:00 90 11/01/17 22:00 94 11/01/17 20:00 93 11/01/17 20:00 97.7 93 24 177/84 (115) 99 11/01/17 18:00 96 11/01/17 16:00 89 11/01/17 16:00 98.3 89 17 184/97 (126) 99 11/01/17 14:00 91 11/01/17 12:00 98.2 85 17 166/102 (123) 99 11/01/17 12:00 85 I/O 11/01/17 11/01/17 11/01/17 11/02/17 11/02/17 11/02/17 07:00 15:00 23:00 07:00 15:00 23:00 Intake Total 730 ml 625 ml 750 ml Output Total 600 ml 1200 ml 900 ml Balance 130 ml -575 ml -150 ml Intake Oral 480 ml 625 ml 750 ml IV Total 250 ml Output Urine Total 600 ml 1200 ml 900 ml # Bowel Movements 0 1 0 Physical Exam GENERAL: SKIN: Warm and dry. HEAD: Normocephalic. EYES: No scleral icterus. No injection or drainage. NECK: Supple, trachea midline. No JVD or lymphadenopathy. CARDIOVASCULAR: Regular rate and rhythm without murmurs, gallops, or rubs. RESPIRATORY: Breath sounds equal bilaterally. No accessory muscle use. GASTROINTESTINAL: Abdomen soft, non-tender, nondistended. MUSCULOSKELETAL: No cyanosis, or edema. BACK: Nontender without obvious deformity. No CVA tenderness. Laboratory Laboratory Tests Test 11/02/17 09:12 Prothrombin Time 20.0 SEC Prothromb Time International Ratio 2.0 RATIO Assessment and Plan Assessment and Plan 1.) HTN - improved, norvasc just added yesterday, steady state level will take 5 -6 days 2.) Cardiomyoapthy - bedside echo prelim report ef@40-45%, pap not significantly elevated Arsen Ramirez MD Nov 02, 2017 11:08
--- NOTE | 2017-11-02 12:47 | HHI.PR ---
Subjective Remarks patient sitting in bed, friend at bedside, reported no short of breath on rest but he does have a little bit of short of breath on exertion, he also reported minimal cough Objective Vitals Vital Signs Date Time Temp Pulse Resp B/P (MAP) Pulse Ox O2 Delivery O2 Flow Rate FiO2 11/02/17 08:00 97.8 97 20 167/96 (119) 97 11/02/17 04:30 97.5 81 18 166/93 (117) 99 11/02/17 01:30 97.6 83 18 154/92 (112) 97 11/02/17 00:00 98.2 90 30 158/86 (110) 99 11/02/17 00:00 90 11/01/17 22:00 94 11/01/17 20:00 93 11/01/17 20:00 97.7 93 24 177/84 (115) 99 11/01/17 18:00 96 11/01/17 16:00 89 11/01/17 16:00 98.3 89 17 184/97 (126) 99 11/01/17 14:00 91 I/O 11/01/17 11/01/17 11/01/17 11/02/17 11/02/17 11/02/17 07:00 15:00 23:00 07:00 15:00 23:00 Intake Total 730 ml 625 ml 750 ml Output Total 600 ml 1200 ml 900 ml Balance 130 ml -575 ml -150 ml Intake Oral 480 ml 625 ml 750 ml IV Total 250 ml Output Urine Total 600 ml 1200 ml 900 ml # Bowel Movements 0 1 0 Result Diagram: 11/01/17 0535 11/01/17 0535 Objective Remarks GENERAL: This is a morbidly obese 32 malewell-developed patient, in no apparent distress. CARDIOVASCULAR: Regular rate and rhythm without murmurs, gallops, or rubs. RESPIRATORY: Clear to auscultation. Breath sounds equal bilaterally. No wheezes , rales, or rhonchi. GASTROINTESTINAL: Abdomen soft, non-tender, nondistended. Normal active bowel sounds MUSCULOSKELETAL: Extremities without clubbing, cyanosis, or edema. NEURO: Alert & Oriented x4 to person, place, time, situation. Moves all ext x4 A/P Problem List: (1) Hypertensive urgency, malignant ICD Code: I16.0 - Hypertensive urgency Assessment and Plan 11/02: 2-D echo still pending, blood pressure around 166/93 continue with Norvasc , monitor blood pressure will need few days to get to the new baseline, chest x- ray showed ground glass opacity bilateral bases mostly related to his autoimmune disease. 32-year-old man with Hypertensive urgency-resolved - s/p Cardene drip - monitor BP - Continue home medication of Lisinopril and Metoprolol Elevated troponin - initial troponin 0.06 x 2 - suspect due to uncontrolled hypertension -appreciate cardiology consultation, recommended adding Norvasc to his regimen and monitor - cycle CEsnegative - continuous cardiac monitoring Nonischemic cardiomyopathy s/p defibrillator/pacemaker CHF, no evidence of fluid overload on exam, BNP 45 - 2D echo pending - Continue patient on home dose of furosemide 40 mg daily and potassium 10 mg twice a day Atrial fibrillation on Coumadin - rate controlled - INR therapeutic at 2.0 - Continue patient on home Coumadin dose. Continue to monitor INR. Pharmacy to dose. - Continue patient on metoprolol 50 mg daily Hyperglycemia - No reported history of diabetes - Obtain hemoglobin A1c GERD - Continue home dose of PPI RA Lupus - Chronic, stable DVT prophylaxis - Patient is on Coumadin Discharge Planning in a.m. if stable and cleared by cardiology Hitesh Brasher MD Nov 02, 2017 12:47
[2017-11-02] MEDS: ACETAMINOPHEN 325 MG TAB PO PRN (12:54)
[2017-11-02] MEDS: WARFARIN SOD 5 MG TAB PO SCH (15:28)
--- NOTE | 2017-11-02 19:36 | ECHRPT ---
Indication: HYPERTENSIVE HEART DISEASE CONCLUSIONS The left ventricle is not well visualized. Normal left ventricular size. Wall thickness is normal. The left ventricular systolic function is normal with an estimated ejection fraction in the range of 55-60%. Regional wall motion abnormalities cannot be excluded on the basis of this study. No definite valvular abnormalities though the technical limitations of the study preclude optimal va lvular assessment. BP: 157 / 86 HR: 87 Rhythm: MEASUREMENTS (Male / Female) Normal Values Technical Quality:Fair 2D ECHO LV Diastolic Diameter PLAX 6.1 cm 4.2 - 5.9 / 3.9 - 5.3 cm LV Systolic Diameter PLAX 5.0 cm IVS Diastolic Thickness 1.5 cm 0.6 - 1.0 / 0.6 - 0.9 cm LVPW Diastolic Thickness 1.4 cm 0.6 - 1.0 / 0.6 - 0.9 cm LV Relative Wall Thickness 0.5 RV Internal Dim ED PLAX 2.6 cm LA Systolic Diameter LX 4.4 cm 3.0 - 4.0 / 2.7 - 3.8 cm DOPPLER Mitral E Point Velocity 67.6 cm/s Mitral A Point Velocity 106.0 cm/s Mitral E to A Ratio 0.6 TR Peak Velocity 122.0 cm/s TR Peak Gradient 6.0 mmHg FINDINGS LEFT VENTRICLE The left ventricle is not well visualized. Normal left ventricular size. Wall thickness is normal. The left ventricular systolic function is normal with an estimated ejection fraction in the range of 55-60%. Regional wall motion abnormalities cannot be excluded on the basis of this study. RIGHT VENTRICLE Normal right ventricular size and systolic function. LEFT ATRIUM The left atrial size is normal. RIGHT ATRIUM The right atrial size is normal. ATRIAL SEPTUM Normal atrial septal thickness without atrial level shunting by limited color doppler interrogation. AORTA The aortic root and proximal ascending aorta are normal in size on limited imaging. MITRAL VALVE Structurally normal mitral valve. No mitral valve stenosis or regurgitation. AORTIC VALVE Trileaflet aortic valve. No aortic valve stenosis or regurgitation. TRICUSPID VALVE Structurally normal tricuspid valve. No tricuspid valve stenosis or regurgitation. PULMONARY VALVE The pulmonary valve is not well visualized. VESSELS The inferior vena cava is normal in size. PERICARDIUM No pericardial effusion. Caden Bhakta MD (Electronically Signed) Final Date:02 November 2017 19:35
[2017-11-02] MEDS ORDERED: KETOROLAC TROMETHAMINE 30 MG/ML (IVP) VIAL IV PUSH ONE (19:45)
[2017-11-03 03:43] VITALS: PULSE 85
[2017-11-03 04:00] VITALS: BP 151/84; PULSE 80; PULSE 85; RESP 18; TEMP 97.4; O2SAT 96
[2017-11-03 08:00] VITALS: PULSE 85
[2017-11-03 08:09] LABS: INTERNATIONAL NORMALIZED RATIO 1.8 RATIO
[2017-11-03 08:15] VITALS: BP 145/70; PULSE 85; RESP 18; TEMP 97.9; O2SAT 98
--- NOTE | 2017-11-03 09:04 | PD.CARD.PN ---
Subjective Subjective Remarks alert in nad, denies dyspnea or chest pain Objective Medications Current Medications Medications (Trade) Dose Ordered Sig/Ryan Route Start Time Stop Time Status Last Admin (Coumadin) 5 mg MoTuThFrSa@1600 PO 11/01/17 16:00 11/02/17 15:28 (Coumadin) 7.5 mg SuWe@1600 PO 11/04/17 16:00 (Protonix) 40 mg DAILY PO 11/01/17 09:00 11/02/17 08:20 Pharmacy Profile Note 0 ml @ 0 mls/hr UNSCH OTHER 10/31/17 19:15 (NS Flush) 2 ml UNSCH PRN IV FLUSH 10/31/17 19:15 (NS Flush) 2 ml BID IV FLUSH 10/31/17 21:00 11/02/17 20:24 (Tylenol) 650 mg Q4H PRN PO 10/31/17 19:15 (Zofran Inj) 4 mg Q6H PRN IVP 10/31/17 19:15 (Tylenol) 650 mg Q6H PRN PO 10/31/17 19:15 11/02/17 12:54 (Narcan Inj) 0.4 mg UNSCH PRN IV PUSH 10/31/17 19:15 (Milk Of Magnesia Liq) 30 ml Q12H PRN PO 10/31/17 19:15 11/02/17 15:28 (Prinivil) 20 mg DAILY PO 11/01/17 09:00 11/02/17 08:19 (Lasix) 40 mg DAILY PO 11/01/17 09:00 11/02/17 08:19 (KCl) 10 meq BID PO 11/01/17 09:00 11/02/17 20:23 (Norvasc) 5 mg DAILY PO 11/02/17 09:00 11/02/17 08:20 (Lopressor) 50 mg BID PO 11/01/17 21:00 11/02/17 20:23 (Apresoline Inj) 10 mg Q30M PRN IV PUSH 11/02/17 00:45 11/02/17 12:57 Vital Signs / I&O Vital Signs Date Time Temp Pulse Resp B/P (MAP) Pulse Ox O2 Delivery O2 Flow Rate FiO2 11/03/17 04:00 85 11/03/17 04:00 97.4 80 18 151/84 (106) 96 11/03/17 03:43 85 11/03/17 00:00 Room Air 11/02/17 23:45 88 11/02/17 23:24 97.7 87 18 148/75 (99) 97 11/02/17 20:00 Room Air 11/02/17 20:00 97 11/02/17 19:17 97.7 102 18 160/101 (120) 96 11/02/17 16:00 93 11/02/17 16:00 97.6 97 20 172/100 (124) 96 11/02/17 12:00 91 11/02/17 12:00 98.1 95 20 158/98 (118) 96 I/O 11/02/17 11/02/17 11/02/17 11/03/17 11/03/17 11/03/17 06:59 14:59 22:59 06:59 14:59 22:59 Intake Total 750 ml 840 ml 480 ml Output Total 900 ml Balance -150 ml 840 ml 480 ml Intake Oral 750 ml 840 ml 480 ml Output Urine Total 900 ml # Voids 3 2 # Bowel Movements 0 0 0 Physical Exam GENERAL: SKIN: Warm and dry. HEAD: Normocephalic. EYES: No scleral icterus. No injection or drainage. NECK: Supple, trachea midline. No JVD or lymphadenopathy. CARDIOVASCULAR: Regular rate and rhythm without murmurs, gallops, or rubs. RESPIRATORY: Breath sounds equal bilaterally. No accessory muscle use. GASTROINTESTINAL: Abdomen soft, non-tender, nondistended. MUSCULOSKELETAL: No cyanosis, or edema. BACK: Nontender without obvious deformity. No CVA tenderness. Laboratory Laboratory Tests Test 11/02/17 09:12 11/03/17 06:44 Prothrombin Time 20.0 SEC 18.0 SEC Prothromb Time International Ratio 2.0 RATIO 1.8 RATIO Assessment and Plan Assessment and Plan 1.) HTN - improved, norvasc just added yesterday, steady state level will take 5 -6 days 2.) Cardiomyoapthy - 55-60%, pap not significantly elevated, assymptomatic 3.) ok to dc from cv standpoint f/u with me this week, d/w patient and nurse at bedside Arsen Ramirez MD Nov 03, 2017 09:04
[2017-11-03] MEDS ORDERED: AMLO5 PO (09:59)
[2017-11-03] MEDS: POTASSIUM CHLORIDE 10 MEQ CONTROLLED RELEASE TAB PO SCH (10:04)
[2017-11-03] MEDS: SODIUM CHLORIDE 0.9% FLUSH 10 ML FLUSH IV FLUSH SCH (10:04)
[2017-11-03] MEDS: METOPROLOL TARTRATE 50 MG TAB PO SCH (10:04)
[2017-11-03] MEDS: amLODIPine BESYLATE 5 MG TAB PO SCH (10:05)
[2017-11-03] MEDS: PANTOPRAZOLE SOD 40 MG DELAYED RELEASE TAB PO SCH (10:05)
[2017-11-03] MEDS: LISINOPRIL 20 MG TAB PO SCH (10:05)
[2017-11-03] MEDS: FUROSEMIDE 40 MG TAB PO SCH (10:05)
--- NOTE | 2017-11-03 15:28 | HHI.DS ---
Discharge Summary Admission Date Oct 31, 2017 at 18:03 Discharge Date: Nov 03, 2017 Admitting Diagnosis HYPERTENSIVE URGENCY, ELEVATED TROPONIN (1) Hypertensive urgency, malignant ICD Code: I16.0 - Hypertensive urgency Procedures none Brief History - From Admission Written by Laureen Cesar, acting as scribe for Dr. Flowers on 10/31/17 at 18: 19. This is 32yo male patient with a PMHX of atrial fibrillation on Coumadin, CHF, s/p pacemaker, s/p defibrillator, GERD, RA, lupus and asthma who presents to [facility] ED with complaints of dyspnea. Patient was out of his Lasix for about a week but resumed it on Sunday. Patient reports progressive dyspnea with minimal exertion for the past 2-3 days. He admits to not eating as healthy as he should be. He endorses chronic dull chest pain with deep inspiration. He endorses swelling in his legs. He denies any chest pain or shortness of breath. He denies any nausea, vomiting or abdominal pain. In the ED, patient was found to have uncontrolled hypertension with BP . His troponin was found to be elevated. BNP was 45. CTA negative for PE. CBC/BMP: 11/01/17 0535 11/01/17 0535 Significant Findings Laboratory Tests Test 10/31/17 16:10 10/31/17 21:45 11/01/17 05:35 11/02/17 09:12 Troponin I 0.06 NG/ML (0.02-0.05) Mean Corpuscular Hemoglobin 26.8 PG (27.0-34.0) Monocytes (%) (Auto) 8.4 % (0.0-8.0) Prothrombin Time 19.9 SEC (9.8-11.6) 20.0 SEC (9.8-11.6) Blood Urea Nitrogen 20 MG/DL (7-18) Random Glucose 155 MG/DL (74-106) Albumin 3.0 GM/DL (3.4-5.0) Test 11/03/17 06:44 Prothrombin Time 18.0 SEC (9.8-11.6) PE at Discharge GENERAL: This is a morbidly obese 32 malewell-developed patient, in no apparent distress. CARDIOVASCULAR: Regular rate and rhythm without murmurs, gallops, or rubs. RESPIRATORY: Clear to auscultation. Breath sounds equal bilaterally. No wheezes , rales, or rhonchi. GASTROINTESTINAL: Abdomen soft, non-tender, nondistended. Normal active bowel sounds MUSCULOSKELETAL: Extremities without clubbing, cyanosis, or edema. NEURO: Alert & Oriented x4 to person, place, time, situation. Moves all ext x4 Hospital Course 32 years old -[place] male with history of hypertension and nonischemic cardiomyopathy status post pacer defibrillator presented to the ED with hypertensive urgency and elevated troponin, cardiology consulted, recommended further controlling of blood pressure Norvasc added, 2-D echo has been done showed ejection fraction within normal limits, patient on Coumadin for A. fib, on day of discharge INR is 1.8 patient was given extra dose of Coumadin to follow-up as an outpatient Pt Condition on Discharge: Fair Discharge Disposition: Discharge Home Discharge Time: <= 30 minutes Discharge Instructions DIET: Follow Instructions for: Heart Healthy Diet Activities you can perform: Weight Bearing as Jonathan Follow up Referrals: Cardiology - 2 Weeks with Arsen Ramirez MD New Medications: Amlodipine (Norvasc) 5 Mg Tab 5 MG PO DAILY for htn, #30 TAB Continued Medications: Furosemide (Furosemide) 40 Mg Tab 40 MG PO DAILY, #30 TAB 0 Refills Lisinopril (Lisinopril) 20 Mg Tab 20 MG PO DAILY, #30 TAB 0 Refills Metoprolol Tartrate (Metoprolol Tartrate) 50 Mg Tab 50 MG PO DAILY, #30 TAB 0 Refills Omeprazole (Omeprazole) 40 Mg Cap 40 MG PO DAILY, #30 CAP 0 Refills Potassium Chloride ER (Klor-Con 10) 10 Meq Tab 10 MEQ PO BID for Electrolyte Replacement, #60 TAB 0 Refills Warfarin (Warfarin) 5 Mg Tab 5 MG PO MoTuThFrSa for Blood Clot Prevention, #30 TAB 0 Refills Warfarin (Warfarin) 7.5 Mg Tab 7.5 MG PO WeSu for Blood Clot Prevention, #30 TAB 0 Refills Hitesh Brasher MD Nov 03, 2017 15:28
[2017-11-03] MEDS ORDERED: WARFARIN SOD 2.5 MG TAB PO ONE (16:00)
[2017-11-04] MEDS ORDERED: WARFARIN SOD 7.5 MG TAB PO SCH (16:00)
== END 2017-11-03 12:00 | disposition home or self-care (01) | DRG 305 ==
LOC: NEPE 11:37 → NEDA 18:03 → HIMN 21:35 → N04B 11-02 01:35
PROVIDERS: ADMIT Hospitalist; ATTEND Hospitalist
DX: I16.0 Hypertensive urgency (principal); I42.9 Cardiomyopathy, unspecified; I50.9 Heart failure, unspecified; M32.9 Systemic lupus erythematosus, unspecified; Z68.43 Body mass index [BMI] 50.0-59.9, adult; I11.0 Hypertensive heart disease with heart failure; E66.9 Obesity, unspecified; Z95.810 Presence of automatic (implantable) cardiac defibrillator; J45.909 Unspecified asthma, uncomplicated; K21.9 Gastro-esophageal reflux disease without esophagitis; I48.91 Unspecified atrial fibrillation; Z79.01 Long term (current) use of anticoagulants; M06.9 Rheumatoid arthritis, unspecified; R73.9 Hyperglycemia, unspecified; Z79.1 Long term (current) use of non-steroidal anti-inflammatories (NSAID)
CPT/HCPCS: 71046; 71275; 80048; 80053; 82550; 82552; 83735; 83880; 84484; 85025; 85610; 85730; 87641; 93005; 93306; 96374; 96375; J0360; J1885; J1940; J7050; Q9967